=== PATIENT | female | born 1955 | race Caucasian/White ===

== ENCOUNTER → 2020-08-06 | Outpatient (REF) | payer OTHER ==
[2020-08-06 15:57] LABS: BASO # 0.1 10^3/uL (0.0-0.2); BASO % 0.8 % (0.0-1.0); EOS # 0.2 10^3/uL (0.0-0.5); EOS % 1.3 % (0.0-3.0); HEMATOCRIT 43.9 % (36.0-47.0); HEMOGLOBIN 14.2 g/dl (12.0-15.5); LYMPH % 22.5 % (24.0-44.0); MEAN CORPUSCULAR HEMOGLOBIN 31.5 pg (27.0-33.0); MEAN CORPUSCULAR HGB CONC 32.3 g/dl (32.0-36.5); MEAN CORPUSCULAR VOLUME 97.3 fl (80.0-96.0); MONO # 0.9 10^3/uL (0.0-0.8); MONO % 6.6 % (2.0-8.0); NEUTROPHILS # 9.2 10^3/uL (1.5-8.5); NEUTROPHILS % 68.4 % (36.0-66.0); PLATELET COUNT, AUTOMATED 439 10^3/uL (150-450); RED BLOOD COUNT 4.51 10^6/uL (4.00-5.40); WHITE BLOOD COUNT 13.4 10^3/uL (4.0-10.0)
[2020-08-06 16:31] LABS: ALBUMIN 4.1 GM/DL (3.2-5.2); ALT/SGPT 21 U/L (12-78); BILIRUBIN,TOTAL 0.3 MG/DL (0.2-1.0); BLOOD UREA NITROGEN 14 MG/DL (7-18); CALCIUM LEVEL 9.2 MG/DL (8.8-10.2); CARBON DIOXIDE LEVEL 27 MEQ/L (21-32); CHLORIDE LEVEL 107 MEQ/L (98-107); CHOLESTEROL LEVEL 309 MG/DL (<200); CHOLESTEROL RISK RATIO 3.635 (<5); FREE T4 0.93 NG/DL (0.76-1.46); GLOMERULAR FILTRATION RATE > 60.0 (>45); GLUCOSE, FASTING 90 MG/DL (70-100); HDL CHOLESTEROL 85 MG/DL (>40); LDL CHOLESTEROL 163 MG/DL (<100); NON-HDL-C 224 MG/DL; SODIUM LEVEL 140 MEQ/L (136-145); TOTAL PROTEIN 7.2 GM/DL (6.4-8.2); TRIGLYCERIDES LEVEL 305 MG/DL (<150)
[2020-08-06 17:20] LABS: CA 125 11.5 U/ML (<30.2)
[2020-08-06 17:46] LABS: CHLAMYDIA DNA AMPLIFICATION NEGATIVE (NEGATIVE); GC DNA AMPLIFICATION NEGATIVE (NEGATIVE)
== END ==
LOC: M SFHCCLAY 12:03
PROVIDERS: ATTEND Nurse Practitioner Family
DX: N95.0 Postmenopausal bleeding (principal); R63.5 Abnormal weight gain; F17.210 Nicotine dependence, cigarettes, uncomplicated; R53.83 Other fatigue; Z13.220 Encounter for screening for lipoid disorders

== ENCOUNTER → 2020-09-16 | Outpatient (REF) | payer SELFPAY | LOC: M SFHCWAGY 14:59 | PROVIDERS: ATTEND Specialist | DX: Z01.419 Encounter for gynecological examination (general) (routine) without abnormal findings (principal) ==

== ENCOUNTER → 2021-01-07 | Outpatient (REF) | payer OTHER ==
[2021-01-07 15:51] LABS: BASO # 0.1 10^3/uL (0.0-0.2); BASO % 0.8 % (0.0-1.0); EOS # 0.2 10^3/uL (0.0-0.5); EOS % 1.3 % (0.0-3.0); HEMATOCRIT 43.5 % (36.0-47.0); HEMOGLOBIN 14.5 g/dl (12.0-15.5); LYMPH # 4.4 10^3/uL (1.5-5.0); MEAN CORPUSCULAR HEMOGLOBIN 32.1 pg (27.0-33.0); MEAN CORPUSCULAR HGB CONC 33.3 g/dl (32.0-36.5); MEAN CORPUSCULAR VOLUME 96.2 fl (80.0-96.0); MONO # 0.9 10^3/uL (0.0-0.8); MONO % 6.4 % (2.0-8.0); NEUTROPHILS # 7.8 10^3/uL (1.5-8.5); NEUTROPHILS % 58.2 % (36.0-66.0); PLATELET COUNT, AUTOMATED 454 10^3/uL (150-450); RED BLOOD COUNT 4.52 10^6/uL (4.00-5.40); WHITE BLOOD COUNT 13.3 10^3/uL (4.0-10.0)
[2021-01-07 16:20] LABS: ALBUMIN 4.1 GM/DL (3.2-5.2); ALT/SGPT 23 U/L (12-78); BILIRUBIN,TOTAL 0.7 MG/DL (0.2-1.0); BLOOD UREA NITROGEN 11 MG/DL (7-18); CALCIUM LEVEL 9.3 MG/DL (8.8-10.2); CARBON DIOXIDE LEVEL 23 MEQ/L (21-32); CHLORIDE LEVEL 107 MEQ/L (98-107); CREATININE FOR GFR 0.75 MG/DL (0.55-1.30); GLOMERULAR FILTRATION RATE > 60.0 (>45); GLUCOSE, FASTING 97 MG/DL (70-100); POTASSIUM SERUM 3.8 MEQ/L (3.5-5.1); SODIUM LEVEL 136 MEQ/L (136-145); TOTAL PROTEIN 7.6 GM/DL (6.4-8.2)
== END ==
LOC: M SFHCCLAY 10:38
PROVIDERS: ATTEND Nurse Practitioner Family
DX: C54.1 Malignant neoplasm of endometrium (principal)

== ENCOUNTER → 2021-01-07 | Outpatient (CLI) | payer OTHER ==
--- NOTE | 2021-01-07 11:06 | REP ---
INDICATION: C54.1 ENDOMETRIAL CARCINOMA COMPARISON: None. TECHNIQUE: PA and lateral. FINDINGS: The mediastinum and cardiac silhouette are normal. The lung alvarez are clear and without acute consolidation, effusion, or pneumothorax. The skeletal structures demonstrate osteopenia and degenerative changes. IMPRESSION: No acute cardiopulmonary process. <Electronically signed by Enrique Conner > 01/07/21 1108
== END ==
LOC: M CLY 10:45
PROVIDERS: ATTEND Nurse Practitioner Family
DX: C54.1 Malignant neoplasm of endometrium (principal); F17.210 Nicotine dependence, cigarettes, uncomplicated

== ENCOUNTER → 2021-06-30 | Outpatient (REF) | payer OTHER ==
[2021-06-30 16:56] LABS: FREE T4 0.97 NG/DL (0.76-1.46); THYROID STIMULATING HORMONE 1.44 uIU/ML (0.358-3.740)
[2021-07-03 23:07] LABS: TESTOSTERONE FREE+WEAKLY BOUND 1.4 ng/dL (0.0-9.5); TESTOSTERONE TOTAL 15 ng/dL (3-67)
== END ==
LOC: M LABDRAWC 15:45
PROVIDERS: ATTEND Obstetrics & Gynecology Gynecologic Oncology
DX: E05.90 Thyrotoxicosis, unspecified without thyrotoxic crisis or storm (principal)

== ENCOUNTER → 2021-10-02 | Outpatient (REF) | payer OTHER | LOC: M LABDRAWC 15:49 | PROVIDERS: ATTEND Obstetrics & Gynecology Gynecologic Oncology | DX: C54.1 Malignant neoplasm of endometrium (principal); Z79.899 Other long term (current) drug therapy ==

== ENCOUNTER → 2022-06-23 | Outpatient (REF) | payer OTHER ==
[2022-06-23 18:07] LABS: ALBUMIN 4.6 G/DL (3.2-5.2); ALKALINE PHOSPHATASE 63 U/L (46-116); ALT/SGPT 34 U/L (7.0-40); AST/SGOT 38 U/L (<34); BILIRUBIN,TOTAL 0.5 MG/DL (0.3-1.2); BLOOD UREA NITROGEN 6 MG/DL (9-23); CALCIUM LEVEL 9.6 MG/DL (8.3-10.6); CARBON DIOXIDE LEVEL 28 MMOL/L (20-31); CHLORIDE LEVEL 102 MMOL/L (98-107); CHOLESTEROL LEVEL 321 MG/DL (<200); CHOLESTEROL RISK RATIO 2.97 (<5); CREATININE FOR GFR 0.59 MG/DL (0.55-1.30); GLOMERULAR FILTRATION RATE > 60.0 (>45); GLUCOSE, FASTING 97 MG/DL (74-106); HDL CHOLESTEROL 107.9 MG/DL (>40); LDL CHOLESTEROL 179.3 MG/DL (<100); NON-HDL-C 213 MG/DL; POTASSIUM SERUM 4.3 MMOL/L (3.5-5.1); SODIUM LEVEL 137 MMOL/L (136-145); TOTAL PROTEIN 7.4 G/DL (5.7-8.2); TRIGLYCERIDES LEVEL 169 MG/DL (<150)
[2022-06-23 18:09] LABS: THYROID STIMULATING HORMONE 1.477 uIU/ML (0.55-4.78)
[2022-06-23 18:11] LABS: BASO # 0.1 10^3/uL (0.0-0.2); EOS # 0.1 10^3/uL (0.0-0.5); HEMATOCRIT 41.1 % (36.0-47.0); HEMOGLOBIN 14.2 g/dl (12.0-15.5); LYMPH # 3.1 10^3/uL (1.5-5.0); LYMPH % 24.4 % (24.0-44.0); MEAN CORPUSCULAR HEMOGLOBIN 32.5 pg (27.0-33.0); MEAN CORPUSCULAR HGB CONC 34.5 g/dl (32.0-36.5); MEAN CORPUSCULAR VOLUME 94.1 fl (80.0-96.0); MONO # 0.9 10^3/uL (0.0-0.8); MONO % 6.8 % (2.0-8.0); NEUTROPHILS # 8.3 10^3/uL (1.5-8.5); NEUTROPHILS % 66.6 % (36.0-66.0); PLATELET COUNT, AUTOMATED 454 10^3/uL (150-450); RED BLOOD COUNT 4.37 10^6/uL (4.00-5.40); WHITE BLOOD COUNT 12.5 10^3/uL (4.0-10.0)
== END ==
LOC: M SFHCCLAY 09:38
PROVIDERS: ATTEND Nurse Practitioner Family
DX: Z13.220 Encounter for screening for lipoid disorders (principal); C54.1 Malignant neoplasm of endometrium; N95.0 Postmenopausal bleeding; R63.5 Abnormal weight gain; F17.210 Nicotine dependence, cigarettes, uncomplicated

== ENCOUNTER → 2022-07-09 | Outpatient (CLI) | payer OTHER | LOC: M WHC 12:24 | PROVIDERS: ATTEND Nurse Practitioner Family | DX: Z12.31 Encounter for screening mammogram for malignant neoplasm of breast (principal); R92.2 Inconclusive mammogram ==

== ENCOUNTER → 2022-07-21 | Outpatient (CLI) | payer OTHER | LOC: M RAD 13:15 | PROVIDERS: ATTEND Nurse Practitioner Family | DX: R22.2 Localized swelling, mass and lump, trunk (principal) ==

== ENCOUNTER → 2022-07-29 | Outpatient (CLI) | payer OTHER | LOC: M RAD 12:20 | PROVIDERS: ATTEND Nurse Practitioner Family | DX: Z12.2 Encounter for screening for malignant neoplasm of respiratory organs (principal); F17.200 Nicotine dependence, unspecified, uncomplicated ==

== ENCOUNTER → 2022-08-02 | Outpatient (CLI) | payer OTHER | LOC: M WHC 14:17 | PROVIDERS: ATTEND Nurse Practitioner Family | DX: R92.8 Other abnormal and inconclusive findings on diagnostic imaging of breast (principal) | CPT/HCPCS: 77065; G0279 ==

== ENCOUNTER → 2022-08-20 | Outpatient (CLI) | payer OTHER ==
[2022-08-20 10:24] LABS: BLOOD UREA NITROGEN 11 MG/DL (9-23); CREATININE FOR GFR 0.58 MG/DL (0.55-1.30); GLOMERULAR FILTRATION RATE > 60.0 (>45)
== END ==
LOC: M LAB 08:59
PROVIDERS: ATTEND Surgery
DX: Z01.818 Encounter for other preprocedural examination (principal)

== ENCOUNTER → 2022-08-23 | Outpatient (CLI) | payer OTHER ==
[~2022-08-23] MED LIST: PROHANCE 279.3MG/ML 15ML VIAL As Ordered ONE
== END ==
LOC: M RAD 14:50
PROVIDERS: ATTEND Surgery
DX: D48.5 Neoplasm of uncertain behavior of skin (principal)
CPT/HCPCS: 72197; A9576

== ENCOUNTER → 2023-12-16 | Outpatient (CLI) | payer OTHER | LOC: M RAD 15:08 | PROVIDERS: ATTEND Nurse Practitioner Family | DX: Z53.9 Procedure and treatment not carried out, unspecified reason (principal); F17.210 Nicotine dependence, cigarettes, uncomplicated ==

== ENCOUNTER → 2024-05-25 | Outpatient (CLI) | payer MEDICARE, OTHER | LOC: M RAD 10:27 | PROVIDERS: ATTEND Nurse Practitioner Family | DX: Z12.2 Encounter for screening for malignant neoplasm of respiratory organs (principal); R91.1 Solitary pulmonary nodule; F17.210 Nicotine dependence, cigarettes, uncomplicated ==

== ENCOUNTER → 2024-07-04 | Outpatient (CLI) | payer MEDICARE | LOC: M WHC 12:50 | PROVIDERS: ATTEND Nurse Practitioner Family | DX: Z12.31 Encounter for screening mammogram for malignant neoplasm of breast (principal) ==

== ENCOUNTER → 2024-07-06 | Outpatient (CLI) | payer MEDICARE | LOC: M SLEEP HO 11:14 | PROVIDERS: ATTEND Nurse Practitioner Family | DX: G47.33 Obstructive sleep apnea (adult) (pediatric) (principal) ==